=== PATIENT | male | born 1965 | race Caucasian/White ===

== ENCOUNTER 2018-02-18 18:17 | Inpatient (IN) | payer BC, OTHER ==
[~2018-02-18] VITALS: Ht 170.2 cm; Wt 73.8 kg
[2018-02-18] MEDS ORDERED: SODIUM CHLORIDE 0.9% 1000ML 1,000 ML IV STA (19:19)
--- NOTE | 2018-02-18 19:23 | EMERGENCY ROOM VISIT NOTE ---
History Report prepared by Kimo: Chiquita Holcomb Under the Supervision of: Dr. Vikki Franco D.O. 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 He states he took Tylenol which helped for about 3-4 hours but then his fever came back and he began having chills. The patient notes he woke up vomiting last night and has had a headache and neck pain since and standing up worsens his abdominal pain. 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 He states he has been staying hydrated by drinking Pedialyte, Gatorade, and water. 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 Negative leg swelling or dizziness Review of Systems See HPI for pertinent positives & negatives. A total of 10 systems reviewed and were otherwise negative. Past Medical & Surgical Medical Problems: (1) No significant past medical history (2) Upper abdominal pain Family History No pertinent family history Social History Smoking Status: Never Smoker Smokeless Tobacco Use: Unknown Marital Status: Housing Status: lives with significant other Occupation Status: employed Current/Historical Medications Scheduled Doxycycline Monohydrate (Monodox), 100 MG PO BID Fluoxetine Hcl (Prozac), 40 MG PO DAILY Allergies Coded Allergies: Erythromycin (Unverified Allergy, Unknown, HIVES, 02/18/18) Physical Exam Vital Signs Date Time Temp Pulse Resp B/P (MAP) Pulse Ox O2 Delivery O2 Flow Rate FiO2 02/19/18 01:07 38.6 80 18 133/75 99 Room Air 02/18/18 23:41 37.8 70 18 132/76 97 Room Air 02/18/18 21:51 73 18 128/69 98 Room Air 02/18/18 21:35 37.5 02/18/18 18:41 38.1 81 18 123/73 96 Room Air Physical Exam GENERAL: alert, well appearing, well nourished, no distress, non-toxic EYE EXAM: normal conjunctiva, PERRL and EOM's grossly intact OROPHARYNX: no exudate, no erythema, lips, buccal mucosa, and tongue normal and mucous membranes are moist NECK: supple, no nuchal rigidity, no adenopathy, non-tender LUNGS: Clear to auscultation. Normal chest wall mechanics HEART: no murmurs, S1 normal and S2 normal ABDOMEN: abdomen soft, non-tender, normo-active bowel sounds, no masses, no rebound or guarding. BACK: Back is symmetrical on inspection and there is no deformity, no midline tenderness, no CVA tenderness. SKIN: no rashes and no bruising. No obvious rash. No erythema migrans. UPPER EXTREMITIES: upper extremities are grossly normal. LOWER EXTREMITIES: No pitting edema. NEURO EXAM: Normal sensorium, cranial nerves II-XII grossly intact, normal speech, no gross weakness of arms, no gross weakness of legs. Medical Decision & Procedures ER Provider Diagnostic Interpretation: Radiology results have been interpreted by the radiologist and reviewed by me. ABDOMEN 2VIEW W/PA CHEST RTN CLINICAL HISTORY: fever, upper abd pain COMPARISON STUDY: No previous studies for comparison. FINDINGS: The erect chest reveals no free intraperitoneal air. There is no focal pulmonary consolidation. Erect and supine views the abdomen reveal no abnormally dilated loops of large or small bowel. There are no transition zones to indicate bowel obstruction. There is a nonspecific 7 mm left upper quadrant calcification. IMPRESSION: No evidence of bowel obstruction. No evidence of free air. Electronically signed by: Edwardo Powell M.D. 02/18/2018 8:[address] ABD/PELVIS IV CONTRAST ONLY CLINICAL HISTORY: Upper abdominal pain and fever COMPARISON STUDY: Conventional radiographic study dated 02/18/2018 TECHNIQUE: Following the IV administration of 115 mL of Optiray-320, CT scan of the abdomen and pelvis was performed from the lung bases to the proximal femurs. Images are reviewed in the axial, sagittal, and coronal planes. IV contrast was administered without complication. A dose lowering technique was utilized adhering to the principles of ALARA. CT DOSE: 301.32 mGy.cm FINDINGS: Lower chest: There are mild dependent atelectatic changes. Liver: The contrast-enhanced liver is normal in size, contour, and attenuation. There is no intrahepatic biliary ductal dilatation. The hepatic veins and portal veins are patent. Gallbladder: No calculi are visualized. There is moderate gallbladder wall thickening. Spleen: Upper limits of normal in size measuring 12.2 cm. There is a splenic artery calcification which explains the calcific density described on the recent abdominal series. Pancreas: Unremarkable. Adrenal glands: Unremarkable. Kidneys: There is an indeterminate 17 mm right renal mass. A dedicated renal CT scan or MRI is recommended in follow-up to differentiate a hyperdense cyst from solid renal neoplasm Bowel: There are no transition zones indicate bowel obstruction. There is no acute diverticulitis. There are no findings to indicate acute appendicitis. Peritoneum: There is no intraperitoneal free air or abdominal ascites. Vasculature: The abdominal aorta is normal in course and caliber. Adenopathy: None. Pelvic viscera: There is mild prostamegaly Skeletal structures: There are scattered sclerotic densities, statistically representing bone islands. Degenerative changes are present within the lower lumbar spine IMPRESSION: 1. No evidence of bowel obstruction. No evidence of free air 2. No evidence of acute appendicitis. No evidence of acute diverticulitis 3. Unexplained gallbladder wall thickening. Correlation with liver function tests is recommended as this finding can be seen in hepatocellular disease. 4. Indeterminate 17 mm right renal mass. A dedicated renal CT scan or MRI is recommended in follow-up to differentiate a hyperdense cyst from solid renal neoplasm Electronically signed by: Edwardo Powell M.D. 02/18/2018 10:34 PM Dictated Date/Time: 02/18/2018 10:28 PM Laboratory Results 02/18/18 19:48 Red Blood Count 4.44, Mean Corpuscular Volume 88.7, Mean Corpuscular Hemoglobin 30.6, Mean Corpuscular Hemoglobin Concent 34.5, Mean Platelet Volume 8.9, Neutrophils (%) (Auto) 75.6, Lymphocytes (%) (Auto) 12.6, Monocytes (%) (Auto) 11.1, Eosinophils (%) (Auto) 0.2, Basophils (%) (Auto) 0.5, Neutrophils # (Auto ) 3.12, Lymphocytes # (Auto) 0.52, Monocytes # (Auto) 0.46, Eosinophils # (Auto ) 0.01, Basophils # (Auto) 0.02 02/18/18 19:48 Test 02/18/18 19:41 02/18/18 19:48 02/18/18 20:04 Urine Color YELLOW Urine Appearance CLEAR (CLEAR) Urine pH 6.0 (4.5-7.5) Urine Specific [place] 1.014 (1.000-1.030) Urine Protein TRACE (NEG) Urine Glucose (UA) 1+ (NEG) Urine Ketones NEG (NEG) Urine Occult Blood NEG (NEG) Urine Nitrite NEG (NEG) Urine Bilirubin NEG (NEG) Urine Urobilinogen NEG (NEG) Urine Leukocyte Esterase NEG (NEG) Urine WBC (Auto) 1-5 /hpf (0-5) Urine RBC (Auto) 0-4 /hpf (0-4) Urine Hyaline Casts (Auto) 0 /lpf (0-5) Urine Epithelial Cells (Auto) 0-5 /lpf (0-5) Urine Bacteria (Auto) NEG (NEG) White Blood Count 4.13 K/uL (4.8-10.8) Red Blood Count 4.44 M/uL (4.7-6.1) Hemoglobin 13.6 g/dL (14.0-18.0) Hematocrit 39.4 % (42-52) Mean Corpuscular Volume 88.7 fL (80-100) Mean Corpuscular Hemoglobin 30.6 pg (25-34) Mean Corpuscular Hemoglobin Concent 34.5 g/dl (32-36) Platelet Count 130 K/uL (130-400) Mean Platelet Volume 8.9 fL (7.4-10.4) Neutrophils (%) (Auto) 75.6 % Lymphocytes (%) (Auto) 12.6 % Monocytes (%) (Auto) 11.1 % Eosinophils (%) (Auto) 0.2 % Basophils (%) (Auto) 0.5 % Neutrophils # (Auto) 3.12 K/uL (1.4-6.5) Lymphocytes # (Auto) 0.52 K/uL (1.2-3.4) Monocytes # (Auto) 0.46 K/uL (0.11-0.59) Eosinophils # (Auto) 0.01 K/uL (0-0.5) Basophils # (Auto) 0.02 K/uL (0-0.2) RDW Standard Deviation 41.7 fL (36.4-46.3) RDW Coefficient of Variation 12.9 % (11.5-14.5) Immature Granulocyte % (Auto) 0.0 % Immature Granulocyte # (Auto) 0.00 K/uL (0.00-0.02) Anion Gap 7.0 mmol/L (3-11) Est Creatinine Clear Calc Drug Dose 90.8 ml/min Estimated GFR () 114.2 Estimated GFR (Non- 98.5 BUN/Creatinine Ratio 14.1 (10-20) Calcium Level 8.5 mg/dl (8.5-10.1) Magnesium Level 2.2 mg/dl (1.8-2.4) Total Bilirubin 0.8 mg/dl (0.2-1) Aspartate Amino Transf (AST/SGOT) 45 U/L (15-37) Alanine Aminotransferase (ALT/SGPT) 58 U/L (12-78) Alkaline Phosphatase 78 U/L (45-117) Total Creatine Kinase 94 U/L (39-308) Troponin I < 0.015 ng/ml (0-0.045) Total Protein 7.2 gm/dl (6.4-8.2) Albumin 3.7 gm/dl (3.4-5.0) Globulin 3.5 gm/dl (2.5-4.0) Albumin/Globulin Ratio 1.1 (0.9-2) Lipase 155 U/L (73-393) Thyroid Stimulating Hormone (TSH) 1.570 uIu/ml (0.300-4.500) Lyme Disease IgG Antibody NEG (NEG) Lyme Disease IgM Antibody NEG (NEG) Monoscreen NEG (NEG) Bedside Lactic Acid Venous 0.92 mmol/L (0.90-1.70) Laboratory results per my review. Medications Administered Medications (Trade) Dose Ordered Sig/Kajal Route Start Time Stop Time Status Last Admin Dose Admin Sodium Chloride 1,000 ml @ 999 mls/hr Q1H1M STAT IV 02/18/18 19:19 02/18/18 20:19 DC 02/18/18 20:09 999 MLS/HR Acetaminophen (Tylenol Tab) 1,000 mg NOW STAT PO 02/18/18 21:07 02/18/18 21:08 DC 02/18/18 21:32 1,000 MG Famotidine (Pepcid 20mg Iv Push) 20 mg ONE STAT IV 02/18/18 21:40 02/18/18 21:41 DC 02/18/18 21:49 20 MG Doxycycline Hyclate (Vibramycin Cap) 100 mg ONE ONCE PO 02/18/18 22:15 02/18/18 22:16 DC 02/18/18 22:57 100 MG Acetaminophen 650 mg/Empty Bag 65 ml @ 260 mls/hr Q4 PRN IV 02/19/18 01:30 03/21/18 01:29 02/19/18 05:56 260 MLS/HR Ondansetron HCl (Zofran Inj) 4 mg Q6H PRN IV 02/19/18 02:00 03/21/18 01:59 02/19/18 05:45 4 MG Sodium Chloride 1,000 ml @ 100 mls/hr Q10H IV 02/19/18 02:00 03/21/18 01:59 02/19/18 03:46 100 MLS/HR ECG Per My Interpretation Indication: other (fever) Rate (beats per minute): 71 Rhythm: sinus rhythm Findings: no acute ischemic change, no ectopy, other (normal axis, normal intervals) ED Course 1911: The patient was evaluated in room C9. A complete history and physical exam was performed. 1918: Ordered Sodium Chloride 1000 ml @ 999 mls/hr IV 2134: Patient updated here. States still having upper abdominal pain, no nausea vomiting, body aches are slightly improved. Updated on all results so far. Discussed with patient headache in the setting of fever also. Discuss differential diagnosis including meningitis/encephalitis. Using shared medical decision making we did discuss lumbar puncture to rule out meningitis. Discussed the risks and benefits and the patient declined. 2229: Discussed with pt findings on CT. Will add US. Discussed need for outpt f/u regarding the renal mass noted on CT. Will sign on ultrasound to Dr. Kulkarni for follow-up. Medical Decision Differential diagnosis: Etiologies such as viral syndrome, otitis, pharyngitis, pneumonia, influenza, meningitis, urinary tract infection, sepsis, bacteremia, as well as others were entertained. Discussed all results with patient at bedside including need for outpatient follow-up regarding the renal mass noted on CT. Patient initial presentation more consistent with viral illness possible tickborne illness especially in light of recent tick bite. Patient's labs reassuring, no definitive lab abnormalities to suggest anaplasmosis. Lyme and mono testing initially negative. Patient with mild leukopenia noted, however no other significant abnormalities. CT showed some gallbladder wall thickening but without stones or sludge. This was discussed with patient and ultrasound was ordered. Patient 's exam not impressive for abdominal tenderness or cholecystitis. Patient had some mild nausea but no vomiting. Did discuss possible LP with patient in light of mention of headache, he declined LP and is aware of risks versus benefits. If ultrasound negative plan was for patient to go home on doxycycline until tickborne labs are resulted and to follow-up closely with family doctor regarding his current condition and arrange follow-up regarding the renal mass. I do not suspect bacteremia/sepsis, perforation, mesenteric ischemia, do not suspect pulmonary pathology, have low suspicion for meningitis/ encephalitis, I do not suspect other deep space infection or pharyngitis. No symptoms to suggest infection. Patient signed out to Dr. Kulkarni in stable condition. Patient was hemodynamically stable throughout. Medication Reconcilliation Current Medication List: was personally reviewed by me Blood Pressure Screening Patient's blood pressure: Normal blood pressure Blood pressure disposition: Did not require urgent referral Impression Primary Impression: Fever Additional Impression: Abdominal pain Scribe Attestation The scribe's documentation has been prepared under my direction and personally reviewed by me in its entirety. I confirm that the note above accurately reflects all work, treatment, procedures, and medical decision making performed by me. Departure Information Prescriptions Doxycycline Monohydrate (Monodox) 100 Mg Cap 100 MG PO BID for 21 Days, #42 CAP Prov: Vikki Franco, 02/18/18 Patient Instructions My [facility] Problem Qualifiers Primary Impression: Fever Fever type: unspecified Qualified Codes: R50.9 - Fever, unspecified Additional Impression: Abdominal pain Abdominal location: upper abdomen, unspecified Qualified Codes: R10.10 - Upper abdominal pain, unspecified
[2018-02-18] MEDS ORDERED: FLUO40CA8 PO (20:04)
[2018-02-18 20:14] LABS: BASO % 0.5 %; BASO ABS # 0.02 K/uL (0-0.2); EOS % 0.2 %; EOS ABS # 0.01 K/uL (0-0.5); HEMATOCRIT 39.4 % (42-52); HEMOGLOBIN 13.6 g/dL (14.0-18.0); LYMPH % 12.6 %; LYMPH ABS # 0.52 K/uL (1.2-3.4); MEAN CELL VOLUME 88.7 fL (80-100); MEAN CORPUSCULAR HEMOGLOBIN 30.6 pg (25-34); MEAN CORPUSCULAR HGB CONC 34.5 g/dl (32-36); MEAN PLATELET VOLUME 8.9 fL (7.4-10.4); MONO % 11.1 %; MONO ABS # 0.46 K/uL (0.11-0.59); NEUT % 75.6 %; NEUT ABS # 3.12 K/uL (1.4-6.5); PLATELET COUNT 130 K/uL (130-400); RED CELL DISTRIBUTION WIDTH CV 12.9 % (11.5-14.5); RED CELL DISTRIBUTION WIDTH SD 41.7 fL (36.4-46.3); WHITE BLOOD COUNT 4.13 K/uL (4.8-10.8)
--- NOTE | 2018-02-18 20:28 | DIAGNOSTIC IMAGING REPORT ---
ABDOMEN 2VIEW W/PA CHEST RTN CLINICAL HISTORY: fever, upper abd pain COMPARISON STUDY: No previous studies for comparison. FINDINGS: The erect chest reveals no free intraperitoneal air. There is no focal pulmonary consolidation. Erect and supine views the abdomen reveal no abnormally dilated loops of large or small bowel. There are no transition zones to indicate bowel obstruction. There is a nonspecific 7 mm left upper quadrant calcification. IMPRESSION: No evidence of bowel obstruction. No evidence of free air. Electronically signed by: Edwardo Powell M.D. 02/18/2018 8:26 PM Dictated Date/Time: 02/18/2018 8:25 PM
[2018-02-18 20:34] LABS: MONOSPOT NEG (NEG)
[2018-02-18 20:42] LABS: ALBUMIN 3.7 gm/dl (3.4-5.0); ALKALINE PHOSPHATASE 78 U/L (45-117); ALT/SGPT 58 U/L (12-78); AST/SGOT 45 U/L (15-37); BLOOD UREA NITROGEN 13 mg/dl (7-18); CALCIUM 8.5 mg/dl (8.5-10.1); CARBON DIOXIDE 27 mmol/L (21-32); GLUCOSE 114 mg/dl (70-99); POTASSIUM 3.8 mmol/L (3.5-5.1); SODIUM 135 mmol/L (136-145); TOTAL PROTEIN 7.2 gm/dl (6.4-8.2)
[2018-02-18] MEDS ORDERED: ACETAMINOPHEN 500 MG TAB PO STA (21:07)
[2018-02-18] MEDS ORDERED: FAMOTIDINE 20MG/5ML IV PUSH IV STA (21:40)
[2018-02-18] MEDS ORDERED: OPTIRAY 320 IV PRN (22:00)
[2018-02-18] MEDS ORDERED: DOXYCYCLINE HYCLATE 100 MG CAP PO ONE (22:15)
[2018-02-18] MEDS ORDERED: DOXY100C76 PO (22:18)
--- NOTE | 2018-02-18 22:36 | DIAGNOSTIC IMAGING REPORT ---
CT ABD/PELVIS IV CONTRAST ONLY CLINICAL HISTORY: Upper abdominal pain and fever COMPARISON STUDY: Conventional radiographic study dated 02/18/2018 TECHNIQUE: Following the IV administration of 115 mL of Optiray-320, CT scan of the abdomen and pelvis was performed from the lung bases to the proximal femurs. Images are reviewed in the axial, sagittal, and coronal planes. IV contrast was administered without complication. A dose lowering technique was utilized adhering to the principles of ALARA. CT DOSE: 301.32 mGy.cm FINDINGS: Lower chest: There are mild dependent atelectatic changes. Liver: The contrast-enhanced liver is normal in size, contour, and attenuation. There is no intrahepatic biliary ductal dilatation. The hepatic veins and portal veins are patent. Gallbladder: No calculi are visualized. There is moderate gallbladder wall thickening. Spleen: Upper limits of normal in size measuring 12.2 cm. There is a splenic artery calcification which explains the calcific density described on the recent abdominal series. Pancreas: Unremarkable. Adrenal glands: Unremarkable. Kidneys: There is an indeterminate 17 mm right renal mass. A dedicated renal CT scan or MRI is recommended in follow-up to differentiate a hyperdense cyst from solid renal neoplasm Bowel: There are no transition zones indicate bowel obstruction. There is no acute diverticulitis. There are no findings to indicate acute appendicitis. Peritoneum: There is no intraperitoneal free air or abdominal ascites. Vasculature: The abdominal aorta is normal in course and caliber. Adenopathy: None. Pelvic viscera: There is mild prostamegaly Skeletal structures: There are scattered sclerotic densities, statistically representing bone islands. Degenerative changes are present within the lower lumbar spine IMPRESSION: 1. No evidence of bowel obstruction. No evidence of free air 2. No evidence of acute appendicitis. No evidence of acute diverticulitis 3. Unexplained gallbladder wall thickening. Correlation with liver function tests is recommended as this finding can be seen in hepatocellular disease. 4. Indeterminate 17 mm right renal mass. A dedicated renal CT scan or MRI is recommended in follow-up to differentiate a hyperdense cyst from solid renal neoplasm Electronically signed by: Edwardo Powell M.D. 02/18/2018 10:34 PM Dictated Date/Time: 02/18/2018 10:28 PM
[2018-02-19] VITALS (11 sets, daily range): BP systolic 104–123; BP diastolic 63–80; PULSE 78–96; TEMP 36.3–39.1; O2SAT 91–99; Ht 170.2 cm; Wt 73.8 kg
--- NOTE | 2018-02-19 01:13 | EMERGENCY ROOM VISIT NOTE ---
ED Visit Note First contact with patient: 23:05 Patient is a 52-year-old male that signed out to me awaiting ultrasound the right upper quadrant. Right upper quadrant shows a thickened gallbladder wall with sludge and a CBD slightly dilated. Patient has been having fevers in the ER. The abdominal exam was pretty benign on my evaluation. Discussed with general surgery who evaluated him at bedside. They recommended a HIDA scan. With the fevers and the gallbladder wall distention discussed with internal medicine per general surgeries request. Internal medicine was agreeable to evaluating the patient for observation and further workup with fevers and right upper quadrant gallbladder wall thickening.
--- NOTE | 2018-02-19 01:39 | Surgery Consultation ---
Consultation Date of Consultation: Feb 19, 2018. Attending Physician: Reason for Consultation: Patient is a 52M who presented to the ED this past evening due to intermittent abdominal pain starting on Thursday. Reports his pain is in his upper abdomen and wraps across from the right to left. He has also had a persistent fever since Thursday. Reports he has been taking tylenol every 5 hours since which has helped but his fever keeps returning. Reports 1 episode of nausea/vomiting on Thursday. Denies hematemesis. He also reports chills and body aches. Moving his bowels and urinating without issue. Last BM yesterday morning. He last ate yesterday morning as well. Denies history of previous abdominal surgeries. Denies use of blood thinning or anticoagulant medications. Denies any symptoms like this in the past. Of note, he reports he had a tick in him approximately 3 weeks ago. Lyme Neg. Anaplasma phagoctyophilum AB, DNA pending. EBV AG, AB and panel pending. Patient did receive 100mg Doxycycline in the ED. Denies any other significant PMH. WBC 4.13. AST 45, remaining LFT WNL. CT shows non- specific gallbladder wall thickening. RUQ U/S shows Gallbladder wall at 6mm, sludge, CBD borderline at 7mm, no cholelithiasis present. Acute cholecystitis not excluded. Past Medical/Surgical History Medical Problems: (1) Abdominal pain Status: Acute (2) Fever Status: Acute Family History No pertinent family history Social History Smoking Status: Never Smoker Smokeless Tobacco Use: Unknown Marital Status: Housing Status: lives with significant other Occupation Status: employed Allergies Coded Allergies: Erythromycin (Unverified Allergy, Unknown, HIVES, 02/18/18) Home Medications Scheduled Doxycycline Monohydrate (Monodox), 100 MG PO BID Fluoxetine Hcl (Prozac), 40 MG PO DAILY Current Inpatient Medications Current Inpatient Medications Medications (Trade) Dose Ordered Sig/Kajal Route Start Time Stop Time Status Last Admin Dose Admin Ioversol (Optiray 320) 111 ml UD PRN IV 02/18/18 22:00 02/22/18 21:59 Review of Systems Constitutional: + fever, + chills, + weakness, + problem reported (body aches) Respiratory: No shortness of breath Cardiovascular: No chest pain Abdomen: + pain (RUQ, Epigastric), + nausea (Thursday), + vomiting (Thursday) , No diarrhea, No constipation Genitourinary - Male: No hematuria, No dysuria Integumentary: No new/changing skin lesions, No color change Physical Exam Date Time Temp Pulse Resp B/P (MAP) Pulse Ox O2 Delivery O2 Flow Rate FiO2 02/19/18 01:07 38.6 80 18 133/75 99 Room Air 02/18/18 23:41 37.8 70 18 132/76 97 Room Air 02/18/18 21:51 73 18 128/69 98 Room Air 02/18/18 21:35 37.5 02/18/18 18:41 38.1 81 18 123/73 96 Room Air General Appearance: WD/WN, + pertinent finding (ill appearing, huddled under blankets feeling cold due to fever.) Head: normocephalic, atraumatic ENT: hearing grossly normal Respiratory/Chest: no respiratory distress Abdomen/GI: soft, no organomegaly, no pulsatile mass, + tenderness (pressure in RUQ and epigastric regions with palpation, patient denies any tenderness with palpation) Neurologic/Psych: alert, normal mood/affect, oriented x 3 Skin: normal color, warm/dry Laboratory Results Last 24 Hours Test 02/18/18 19:41 02/18/18 19:48 02/18/18 20:04 Urine Color YELLOW Urine Appearance CLEAR Urine pH 6.0 Urine Specific [place] 1.014 Urine Protein TRACE Urine Glucose (UA) 1+ Urine Ketones NEG Urine Occult Blood NEG Urine Nitrite NEG Urine Bilirubin NEG Urine Urobilinogen NEG Urine Leukocyte Esterase NEG Urine WBC (Auto) 1-5 /hpf Urine RBC (Auto) 0-4 /hpf Urine Hyaline Casts (Auto) 0 /lpf Urine Epithelial Cells (Auto) 0-5 /lpf Urine Bacteria (Auto) NEG White Blood Count 4.13 K/uL Red Blood Count 4.44 M/uL Hemoglobin 13.6 g/dL Hematocrit 39.4 % Mean Corpuscular Volume 88.7 fL Mean Corpuscular Hemoglobin 30.6 pg Mean Corpuscular Hemoglobin Concent 34.5 g/dl Platelet Count 130 K/uL Mean Platelet Volume 8.9 fL Neutrophils (%) (Auto) 75.6 % Lymphocytes (%) (Auto) 12.6 % Monocytes (%) (Auto) 11.1 % Eosinophils (%) (Auto) 0.2 % Basophils (%) (Auto) 0.5 % Neutrophils # (Auto) 3.12 K/uL Lymphocytes # (Auto) 0.52 K/uL Monocytes # (Auto) 0.46 K/uL Eosinophils # (Auto) 0.01 K/uL Basophils # (Auto) 0.02 K/uL RDW Standard Deviation 41.7 fL RDW Coefficient of Variation 12.9 % Immature Granulocyte % (Auto) 0.0 % Immature Granulocyte # (Auto) 0.00 K/uL Sodium Level 135 mmol/L Potassium Level 3.8 mmol/L Chloride Level 101 mmol/L Carbon Dioxide Level 27 mmol/L Anion Gap 7.0 mmol/L Blood Urea Nitrogen 13 mg/dl Creatinine 0.90 mg/dl Est Creatinine Clear Calc Drug Dose 90.8 ml/min Estimated GFR () 114.2 Estimated GFR (Non- 98.5 BUN/Creatinine Ratio 14.1 Random Glucose 114 mg/dl Calcium Level 8.5 mg/dl Magnesium Level 2.2 mg/dl Total Bilirubin 0.8 mg/dl Aspartate Amino Transf (AST/SGOT) 45 U/L Alanine Aminotransferase (ALT/SGPT) 58 U/L Alkaline Phosphatase 78 U/L Total Creatine Kinase 94 U/L Troponin I < 0.015 ng/ml Total Protein 7.2 gm/dl Albumin 3.7 gm/dl Globulin 3.5 gm/dl Albumin/Globulin Ratio 1.1 Thyroid Stimulating Hormone (TSH) 1.570 uIu/ml Lyme Disease IgG Antibody NEG Lyme Disease IgM Antibody NEG Monoscreen NEG Bedside Lactic Acid Venous 0.92 mmol/L Assessment & Plan Abdominal pain, fever, non-specific gallbladder wall thickening. acute cholecystitis?, tick borne illness? Findings discussed with Dr. Barajas and Dr. Kulkarni. Abdomen soft, non-distended, fainted pressure with palpation in RUQ and epigastic areas. febrile, no N/V at this time. Other vitals stable. gallbladder findings non-specific however cannot rule out at this time. other tick borne causes still on the table as well. Will await pending serology and plan for HIDA scan in AM to further assess for cholecystitis. Admit for observation per medicine. NPO, IVF, IV Tylenol 650mg q4h prn for fever, 2g IV Mefoxin, pain medication prn, anti-emetics prn, SCDs. Will plan for laparoscopic cholecystectomy, possible open later today if HIDA findings significant for acute cholecystitis. Will follow closely, please contact with questions or concerns.
[2018-02-19] MEDS ORDERED: CEFOXITIN IV 2,000 MG in DEXTROSE 5% 50ML 50 ML IV SCH (01:45)
[2018-02-19] MEDS ORDERED: MAGNESIUM HYDROXIDE SUSP 30 ML UDC PO PRN (02:00)
[2018-02-19] MEDS ORDERED: POLYETHYLENE (MIRALAX) 17 GM PACK PO PRN (02:00)
[2018-02-19] MEDS ORDERED: ALUMINUM/MAGNESIUM/SIMETH (MAALOX MAX) 30 ML UDC PO PRN (02:00)
[2018-02-19] MEDS: ACETAMINOPHEN IV 650 MG in EMPTY BAG 0 ML IV PRN ×4 (02:14→22:20)
--- NOTE | 2018-02-19 02:39 | History and Physical ---
History & Physical Date & Time of Service: Feb 19, 2018 at 02:39 Chief Complaint: Fever,Headaches,Chills Primary Care Physician: Steven Hernandez M.D. History of Present Illness Source: patient, hospital records 52 yo M presenting with Abdominal pain x 5 days . Abdominal Pain is located across the upper abdomen and is intermittent. He denies meal association. NO aggravating factors. He has tried ibuprofen, Tylenol, TUMS without relief. Patient also reports chills, fevers up to 103 2 days later. ( February 16) He also reports nausea, with one episode of vomiting 2 days ago. He denies change in stool. He also reports generalized bodyache. No other sick contacts. No recent travel. He does report tick bite a few weeks ago without a rash. In the ED, patient arrived febrile in 38.1-38.6, otherwise VSS. He had no Leukocytosis, UA was negative. Lyme EBV serology pending. CT Abdomen showing gallbladder wall thickening and 17 mm renal mass incidentally. Abdominal u/s showed gall bladder thickening with possible intraluminal sludge CBD borderline dilated at 7 mm, exophytic right renal cyst, hepatic steatosis ( Per Stat Rad). PCP is Dave Hernandez MD Past Medical/Surgical History Past Medical History Depression/Anxiety Medical Problems: (1) No significant past medical history (2) Upper abdominal pain Family History FH: cancer No pertinent family history Social History Smoking Status: Never Smoker Smokeless Tobacco Use: No Alcohol Use: none Drug Use: none Marital Status: Housing status: lives with family Occupational Status: employed Immunizations History of Influenza Vaccine: Unknown History of Tetanus Vaccine?: Unknown History of Pneumococcal: Unknown History of Hepatitis B Vaccine: Unknown Allergies Coded Allergies: Erythromycin (Unverified Allergy, Unknown, HIVES, 02/18/18) Home Medications Scheduled Doxycycline Monohydrate (Monodox), 100 MG PO BID Fluoxetine Hcl (Prozac), 40 MG PO DAILY Scheduled PRN Oxycodone/Acetaminophen 5MG/325MG (Percocet 5MG/325MG), 1-2 TABLETS PO Q4H PRN for Pain Review of Systems Constitutional: + fever, No chills, No weakness Respiratory: No cough, No sputum, No shortness of breath Cardiovascular: No chest pain, No edema, No palpitations Abdomen: + pain, + nausea, + vomiting, No diarrhea, No constipation, No GI bleeding Musculoskeletal: No swelling, No calf pain Genitourinary - Male: No hematuria, No dysuria, No urinary frequency, No urinary urgency Neurologic: No weakness, No numbness/tingling Integumentary: No rash, No itch Physical Exam Vital Signs Date Time Temp Pulse Resp B/P (MAP) Pulse Ox O2 Delivery O2 Flow Rate FiO2 02/19/18 01:07 38.6 80 18 133/75 99 Room Air 02/18/18 23:41 37.8 70 18 132/76 97 Room Air 02/18/18 21:51 73 18 128/69 98 Room Air 02/18/18 21:35 37.5 02/18/18 18:41 38.1 81 18 123/73 96 Room Air GENERAL: alert, moderate distress EYE EXAM: normal conjunctiva, PERRL and EOM's grossly intact OROPHARYNX: no exudate, no erythema, lips, buccal mucosa, and tongue normal and mucous membranes are moist NECK: supple, no nuchal rigidity, no adenopathy, non-tender LUNGS: Clear to auscultation. Normal chest wall mechanics HEART: no murmurs, S1 normal and S2 normal ABDOMEN: abdomen soft, Epigastric, RUQ tenderness to palpation normo-active bowel sounds, no masses, no rebound or guarding. BACK: Back is symmetrical on inspection and there is no deformity, no midline tenderness, no CVA tenderness. SKIN: no rashes and no bruising UPPER EXTREMITIES: upper extremities are grossly normal. LOWER EXTREMITIES: No pitting edema. NEURO EXAM: Normal sensorium, cranial nerves II-XII grossly intact, normal speech, no gross weakness of arms, no gross weakness of legs. Diagnostics Laboratory Results Results Past 24 Hours Test 02/18/18 19:41 02/18/18 19:48 02/18/18 20:04 Range/Units Urine Color YELLOW Urine Appearance CLEAR CLEAR Urine pH 6.0 4.5-7.5 Urine Specific [place] 1.014 1.000-1.030 Urine Protein TRACE NEG Urine Glucose (UA) 1+ NEG Urine Ketones NEG NEG Urine Occult Blood NEG NEG Urine Nitrite NEG NEG Urine Bilirubin NEG NEG Urine Urobilinogen NEG NEG Urine Leukocyte Esterase NEG NEG Urine WBC (Auto) 1-5 0-5 /hpf Urine RBC (Auto) 0-4 0-4 /hpf Urine Hyaline Casts (Auto) 0 0-5 /lpf Urine Epithelial Cells (Auto) 0-5 0-5 /lpf Urine Bacteria (Auto) NEG NEG White Blood Count 4.13 4.8-10.8 K/uL Red Blood Count 4.44 4.7-6.1 M/uL Hemoglobin 13.6 14.0-18.0 g/dL Hematocrit 39.4 42-52 % Mean Corpuscular Volume 88.7 80-100 fL Mean Corpuscular Hemoglobin 30.6 25-34 pg Mean Corpuscular Hemoglobin Concent 34.5 32-36 g/dl Platelet Count 130 130-400 K/uL Mean Platelet Volume 8.9 7.4-10.4 fL Neutrophils (%) (Auto) 75.6 % Lymphocytes (%) (Auto) 12.6 % Monocytes (%) (Auto) 11.1 % Eosinophils (%) (Auto) 0.2 % Basophils (%) (Auto) 0.5 % Neutrophils # (Auto) 3.12 1.4-6.5 K/uL Lymphocytes # (Auto) 0.52 1.2-3.4 K/uL Monocytes # (Auto) 0.46 0.11-0.59 K/uL Eosinophils # (Auto) 0.01 0-0.5 K/uL Basophils # (Auto) 0.02 0-0.2 K/uL RDW Standard Deviation 41.7 36.4-46.3 fL RDW Coefficient of Variation 12.9 11.5-14.5 % Immature Granulocyte % (Auto) 0.0 % Immature Granulocyte # (Auto) 0.00 0.00-0.02 K/uL Sodium Level 135 136-145 mmol/L Potassium Level 3.8 3.5-5.1 mmol/L Chloride Level 101 98-107 mmol/L Carbon Dioxide Level 27 21-32 mmol/L Anion Gap 7.0 3-11 mmol/L Blood Urea Nitrogen 13 7-18 mg/dl Creatinine 0.90 0.60-1.40 mg/dl Est Creatinine Clear Calc Drug Dose 90.8 ml/min Estimated GFR () 114.2 Estimated GFR (Non- 98.5 BUN/Creatinine Ratio 14.1 10-20 Random Glucose 114 70-99 mg/dl Calcium Level 8.5 8.5-10.1 mg/dl Magnesium Level 2.2 1.8-2.4 mg/dl Total Bilirubin 0.8 0.2-1 mg/dl Aspartate Amino Transf (AST/SGOT) 45 15-37 U/L Alanine Aminotransferase (ALT/SGPT) 58 12-78 U/L Alkaline Phosphatase 78 45-117 U/L Total Creatine Kinase 94 39-308 U/L Troponin I < 0.015 0-0.045 ng/ml Total Protein 7.2 6.4-8.2 gm/dl Albumin 3.7 3.4-5.0 gm/dl Globulin 3.5 2.5-4.0 gm/dl Albumin/Globulin Ratio 1.1 0.9-2 Thyroid Stimulating Hormone (TSH) 1.570 0.300-4.500 uIu/ml Lyme Disease IgG Antibody NEG NEG Lyme Disease IgM Antibody NEG NEG Monoscreen NEG NEG Bedside Lactic Acid Venous 0.92 0.90-1.70 mmol/L Diagnostic Radiology ABDOMEN 2VIEW W/PA CHEST RTN CLINICAL HISTORY: fever, upper abd pain COMPARISON STUDY: No previous studies for comparison. FINDINGS: The erect chest reveals no free intraperitoneal air. There is no focal pulmonary consolidation. Erect and supine views the abdomen reveal no abnormally dilated loops of large or small bowel. There are no transition zones to indicate bowel obstruction. There is a nonspecific 7 mm left upper quadrant calcification. IMPRESSION: No evidence of bowel obstruction. No evidence of free air. Electronically signed by: Edwardo Powell M.D. 02/18/2018 8:26 PM Dictated Date/Time: 02/18/2018 8:[address] ABD/PELVIS IV CONTRAST ONLY CLINICAL HISTORY: Upper abdominal pain and fever COMPARISON STUDY: Conventional radiographic study dated 02/18/2018 TECHNIQUE: Following the IV administration of 115 mL of Optiray-320, CT scan of the abdomen and pelvis was performed from the lung bases to the proximal femurs. Images are reviewed in the axial, sagittal, and coronal planes. IV contrast was administered without complication. A dose lowering technique was utilized adhering to the principles of ALARA. CT DOSE: 301.32 mGy.cm FINDINGS: Lower chest: There are mild dependent atelectatic changes. Liver: The contrast-enhanced liver is normal in size, contour, and attenuation. There is no intrahepatic biliary ductal dilatation. The hepatic veins and portal veins are patent. Gallbladder: No calculi are visualized. There is moderate gallbladder wall thickening. Spleen: Upper limits of normal in size measuring 12.2 cm. There is a splenic artery calcification which explains the calcific density described on the recent abdominal series. Pancreas: Unremarkable. Adrenal glands: Unremarkable. Kidneys: There is an indeterminate 17 mm right renal mass. A dedicated renal CT scan or MRI is recommended in follow-up to differentiate a hyperdense cyst from solid renal neoplasm Bowel: There are no transition zones indicate bowel obstruction. There is no acute diverticulitis. There are no findings to indicate acute appendicitis. Peritoneum: There is no intraperitoneal free air or abdominal ascites. Vasculature: The abdominal aorta is normal in course and caliber. Adenopathy: None. Pelvic viscera: There is mild prostamegaly Skeletal structures: There are scattered sclerotic densities, statistically representing bone islands. Degenerative changes are present within the lower lumbar spine IMPRESSION: 1. No evidence of bowel obstruction. No evidence of free air 2. No evidence of acute appendicitis. No evidence of acute diverticulitis 3. Unexplained gallbladder wall thickening. Correlation with liver function tests is recommended as this finding can be seen in hepatocellular disease. 4. Indeterminate 17 mm right renal mass. A dedicated renal CT scan or MRI is recommended in follow-up to differentiate a hyperdense cyst from solid renal neoplasm Electronically signed by: Edwardo Powell M.D. 02/18/2018 10:34 PM Dictated Date/Time: 02/18/2018 10:28 PM Impression Assessment and Plan 52 yo previously healthy M presenting with Abdominal pain x 5 days , Nausea, febrile on arrival, found to have Gall bladder thinking of unclear etiology on CT and Abdominal u/s. In the ED, patient arrived febrile in 38.1-38.6, otherwise VSS. He had no Leukocytosis, UA was negative. Lyme EBV serology pending. CT Abdomen showing gallbladder wall thickening and 17 mm renal mass incidentally. Abdominal u/s showed gall bladder thickening with possible intraluminal sludge CBD borderline dilated at 7 mm, exophytic right renal cyst, hepatic steatosis ( Per Stat Rad). Given Cefoxitin . Abdominal pain, Fever -CBC, CMP , UA unremarkable. -CT Abdomen showing gallbladder wall thickening of unknown etiology and 17 mm renal mass incidentall -Abdominal u/s showed gall bladder thickening with possible intraluminal sludge CBD borderline dilated at 7 mm - NPO - IV Protonix, IV NS - Gastroenterology consult - Pain control - F/u Lyme, EBV Studies Exophytic Renal cyst - per STATRAD Abdominal u/s report -F/u inhouse report -may need Urology f/u outpatient Depression/Anxiety - restart Home Fluoxetine DVT PPX: SCD Code Status: Full Disp: Admit to Med/surg Attending addendum: I have physically seen this patient, have supervised the medical residents activities, and agree with the H&P unless as otherwise noted. Assessment and Plan: Abdominal pain with fever/gallbladder wall thickening/question intraluminal sludge/CBD dilation 7 mm-- N.p.o. IV fluids. Protonix IV. HIDA scan with gallbladder ejection fraction. GI consult. Large exophytic renal cyst-- Incidentally noted on CT. Should have repeat in 6 months follow-up urology. Remainder of notes and orders as noted above. Advanced Directives Existing Advance Directive: No Existing Living Will: No Existing Power of [employer] Social [employer] Teacher: No Resuscitation Status VTE Prophylaxis Will order VTE Prophylaxis: Yes Social Service Consult None Apply Note Total Time: Critical Care 30 - 74 minutes Resident Tracking Resident Involvement: Resident Care Provided Care Provided: Adult Hospital Medicine
[2018-02-19 03:36] LABS: LIPASE 155 U/L (73-393)
[2018-02-19] MEDS: SODIUM CHLORIDE 0.9% 1000ML 1,000 ML IV SCH ×2 (03:46→20:08)
[2018-02-19] MEDS: ONDANSETRON INJ 2 MG/ML 2 ML VIAL IV PRN ×2 (05:45→11:27)
[2018-02-19] MEDS: CEFOXITIN IV 2,000 MG in DEXTROSE 5% 50ML 50 ML IV SCH ×3 (06:23→19:16)
--- NOTE | 2018-02-19 07:19 | Family Medicine Progress Note ---
Progress Note Date of Service Feb 19, 2018. Subjective Pain: improving PO Intake: advance as tolerated Voiding: no voiding problems Patient was recovering well when we examined him. Reported significant improvement in pain. Additional Comments: Deferred 2/2 surgical post op. Question the results of the kidney scan Medications Current Inpatient Medications Medications (Trade) Dose Ordered Sig/Kajal Route Start Time Stop Time Status Last Admin Dose Admin Ioversol (Optiray 320) 111 ml UD PRN IV 02/18/18 22:00 02/22/18 21:59 Acetaminophen 650 mg/Empty Bag 65 ml @ 260 mls/hr Q4 PRN IV 02/19/18 01:30 03/21/18 01:29 02/19/18 05:56 260 MLS/HR Cefoxitin Sodium 2000 mg/Dextrose 60 ml @ 100 mls/hr Q6H IV 02/19/18 07:00 02/21/18 06:59 02/19/18 06:23 100 MLS/HR Acetaminophen (Tylenol Tab) 650 mg Q4H PRN PO 02/19/18 02:00 03/21/18 01:59 Al Hydrox/Mg Hydrox/Simethicone (Maalox Max Susp) 15 ml Q4H PRN PO 02/19/18 02:00 03/21/18 01:59 Magnesium Hydroxide (Milk Of Magnesia Susp) 30 ml Q6H PRN PO 02/19/18 02:00 03/21/18 01:59 Polyethylene (Miralax Powder Packet) 17 gm DAILY PRN PO 02/19/18 02:00 03/21/18 01:59 Ondansetron HCl (Zofran Inj) 4 mg Q6H PRN IV 02/19/18 02:00 03/21/18 01:59 02/19/18 05:45 4 MG Pantoprazole Sodium 40 mg/ Syringe 10 ml @ 5 mls/min DAILY@09,21 IV 02/19/18 09:00 03/21/18 08:59 Fluoxetine HCl (Prozac Cap) 40 mg DAILY PO 02/19/18 09:00 03/21/18 08:59 Sodium Chloride 1,000 ml @ 100 mls/hr Q10H IV 02/19/18 02:00 03/21/18 01:59 02/19/18 03:46 100 MLS/HR Objective Vital Signs Date Time Temp Pulse Resp B/P (MAP) Pulse Ox O2 Delivery O2 Flow Rate FiO2 02/19/18 06:33 37.1 02/19/18 06:30 39.1 02/19/18 03:15 37.6 78 15 123/80 96 Room Air 02/19/18 03:05 Room Air 02/19/18 02:57 38.2 86 18 115/77 97 02/19/18 01:07 38.6 80 18 133/75 99 Room Air 02/18/18 23:41 37.8 70 18 132/76 97 Room Air 02/18/18 21:51 73 18 128/69 98 Room Air 02/18/18 21:35 37.5 02/18/18 18:41 38.1 81 18 123/73 96 Room Air Physical Exam General Appearance: WD/WN, no apparent distress Eyes: sclerae normal ENT: hearing grossly normal Respiratory/Chest: no respiratory distress Neurologic/Psychiatric: alert, normal mood/affect, oriented x 3 Skin: normal color, warm/dry Laboratory Results Last Resulted 02/18/18 19:48 Red Blood Count 4.44, Mean Corpuscular Volume 88.7, Mean Corpuscular Hemoglobin 30.6, Mean Corpuscular Hemoglobin Concent 34.5, Mean Platelet Volume 8.9, Neutrophils (%) (Auto) 75.6, Lymphocytes (%) (Auto) 12.6, Monocytes (%) (Auto) 11.1, Eosinophils (%) (Auto) 0.2, Basophils (%) (Auto) 0.5, Neutrophils # (Auto ) 3.12, Lymphocytes # (Auto) 0.52, Monocytes # (Auto) 0.46, Eosinophils # (Auto ) 0.01, Basophils # (Auto) 0.02 Last Resulted 02/18/18 19:48 Past 24 Hours Test 02/18/18 19:48 Range/Units Total Creatine Kinase 94 39-308 U/L Troponin I < 0.015 0-0.045 ng/ml Assessment and Plan 52 yo previously healthy M presenting with Abdominal pain x 5 days , Nausea, febrile on arrival, found to have Gall bladder thinking of unclear etiology on CT and Abdominal u/s. In the ED, patient arrived febrile in 38.1-38.6, otherwise VSS. He had no Leukocytosis, UA was negative. Lyme EBV serology pending. CT Abdomen showing gallbladder wall thickening and 17 mm renal mass incidentally. Abdominal u/s showed gall bladder thickening with possible intraluminal sludge CBD borderline dilated at 7 mm, exophytic right renal cyst, hepatic steatosis ( Per Stat Rad). Given Cefoxitin . Abdominal pain, Fever - S/P cholecystectomy POD # 0 - Advance diet as tolerated - Did not complete HIDA 2/2 to pain - post-op dx acalculous cholecystitis - CBC, CMP, UA unremarkable. - CT Abdomen showing gallbladder wall thickening of unknown etiology and 17 mm renal mass incidental - Abdominal u/s showed gall bladder thickening with possible intraluminal sludge CBD borderline dilated at 7 mm - IV Protonix Drip, IV NS - Gastroenterology consult -Intraop cholangiogram w/o filling defect, GI will sign off; call if new questions/concerns arise. - Pain control - Lyme negative, EBV Neg Exophytic Renal cyst - per [facility] Abdominal u/s report -Indeterminate 17 mm right renal mass. A dedicated renal CT scan or MRI is recommended in f/u to differentiate a hyperdense cyst from solid renal neoplasm - For Renal MRI tomorrow - Urology f/u outpatient Depression/Anxiety - restarted Home Fluoxetine DVT PPX: SCD Code Status: Full Disp: Admit to Med/surg, d/c pending abx requirements and adequate pain control Resident Physician Supervision Note: I interviewed and examined the patient. Discussed with Dr. Barron and agree with findings and plan as documented in the note. Any exceptions or clarifications are listed here: None Documented By: Domenic Carrera abdominal pain feeling better needing O2 this afternoon but doesn't feel sob wonders if GB could be causing chronic b/l neck pain and headaches vitals noted. nad fatigued. lungs quiet b/l no accessory muscles no r/r/w but diminished air entry throughout. ost - L>R suboccipitals high tone/tender/decreased ROM - inhibitory pressure - improved some cholecystitis - now post op hypoxia - appearing atelectasis. did IS w some cough and improvement neck pain - appearing muscular somatic dysfunction cervical - OMT as above Continued [facility] stay due to: inadequate oral pain control Discharge planning: home Resident Tracking Resident Involvement: Resident Care Provided Care Provided: Adult Hospital Medicine
--- NOTE | 2018-02-19 07:30 | DIAGNOSTIC IMAGING REPORT ---
ABDOMINAL ULTRASOUND, RIGHT UPPER QUADRANT HISTORY: Abnormal CT. Fever. Upper abdominal pain.. COMPARISON: Abdomen and pelvis CT 02/18/2018. FINDINGS: Pancreas: The pancreatic tail is obscured by overlying bowel gas. The remaining portions of the pancreas are within normal limits. Liver: The liver is echogenic consistent with fatty change. Subtle hypoechoic areas adjacent to the gallbladder suggestive of focal fatty sparing. Gallbladder: Diffuse gallbladder wall thickening/edema measuring up to 6 mm. The gallbladder is filled with sludge. CBD: 7 mm. Right kidney: No hydronephrosis. There is an exophytic 1.7 cm lesion. This favors a simple cyst but may demonstrate internal echoes. IMPRESSION: 1. Diffuse gallbladder wall thickening/edema. The gallbladder is filled with sludge. This is nonspecific but can be seen the setting of hepatocellular disease or possibly acute cholecystitis. 2. Hepatic steatosis. 3. Common bile duct is mildly distended at 7 mm. 4. A 1.7 cm exophytic lesion within the right kidney which favors a cyst. However, this may contain internal echoes. Follow-up nonemergent dedicated renal CT or MRI is recommended for further evaluation. Electronically signed by: Oc Kline M.D. 02/19/2018 7:29 AM Dictated Date/Time: 02/19/2018 7:24 AM
[2018-02-19] MEDS: FLUOXETINE HCL 20 MG CAP PO SCH ×2 (09:00→19:29)
[2018-02-19] MEDS: PANTOprazole INJ 40 MG in SYRINGE 0 ML IV SCH ×2 (09:00→21:47)
--- NOTE | 2018-02-19 09:54 | Surgery Progress Note ---
Surgery Progress Note Date of Service Feb 19, 2018. Subjective 52 year old male with 1 week of fevers, nausea. He had abdominal pain earlier in the week but resolved. No association with food. CT with thickened gallbladder wall, RUQUS with no stones, thickened GBW, borderline CBD, no pericholecystic fluid. HIDA scheduled for this morning. Objective Vital Signs: Date Time Temp Pulse Resp B/P (MAP) Pulse Ox O2 Delivery O2 Flow Rate FiO2 02/19/18 07:57 38.6 92 16 120/74 (89) 94 Room Air 02/19/18 06:33 37.1 02/19/18 06:30 39.1 02/19/18 03:15 37.6 78 15 123/80 96 Room Air 02/19/18 03:05 Room Air 02/19/18 02:57 38.2 86 18 115/77 97 02/19/18 01:07 38.6 80 18 133/75 99 Room Air 02/18/18 23:41 37.8 70 18 132/76 97 Room Air 02/18/18 21:51 73 18 128/69 98 Room Air 02/18/18 21:35 37.5 02/18/18 18:41 38.1 81 18 123/73 96 Room Air General Appearance: WD/WN, no apparent distress Head: normocephalic, atraumatic Neck: supple, no adenopathy, thyroid normal, no JVD, no carotid bruits, trachea midline Respiratory/Chest: chest non-tender, lungs clear, normal breath sounds, no respiratory distress, no accessory muscle use Cardiovascular: regular rate, rhythm, no edema, no gallop, no JVD, no murmur Abdomen: normal bowel sounds, non distended, soft, no organomegaly, no pulsatile mass, + tenderness (RUQ tenderness) Laboratory Results: Results Past 24 Hours Test 02/18/18 19:41 02/18/18 19:48 02/18/18 20:04 Range/Units Urine Color YELLOW Urine Appearance CLEAR CLEAR Urine pH 6.0 4.5-7.5 Urine Specific [place] 1.014 1.000-1.030 Urine Protein TRACE NEG Urine Glucose (UA) 1+ NEG Urine Ketones NEG NEG Urine Occult Blood NEG NEG Urine Nitrite NEG NEG Urine Bilirubin NEG NEG Urine Urobilinogen NEG NEG Urine Leukocyte Esterase NEG NEG Urine WBC (Auto) 1-5 0-5 /hpf Urine RBC (Auto) 0-4 0-4 /hpf Urine Hyaline Casts (Auto) 0 0-5 /lpf Urine Epithelial Cells (Auto) 0-5 0-5 /lpf Urine Bacteria (Auto) NEG NEG White Blood Count 4.13 4.8-10.8 K/uL Red Blood Count 4.44 4.7-6.1 M/uL Hemoglobin 13.6 14.0-18.0 g/dL Hematocrit 39.4 42-52 % Mean Corpuscular Volume 88.7 80-100 fL Mean Corpuscular Hemoglobin 30.6 25-34 pg Mean Corpuscular Hemoglobin Concent 34.5 32-36 g/dl Platelet Count 130 130-400 K/uL Mean Platelet Volume 8.9 7.4-10.4 fL Neutrophils (%) (Auto) 75.6 % Lymphocytes (%) (Auto) 12.6 % Monocytes (%) (Auto) 11.1 % Eosinophils (%) (Auto) 0.2 % Basophils (%) (Auto) 0.5 % Neutrophils # (Auto) 3.12 1.4-6.5 K/uL Lymphocytes # (Auto) 0.52 1.2-3.4 K/uL Monocytes # (Auto) 0.46 0.11-0.59 K/uL Eosinophils # (Auto) 0.01 0-0.5 K/uL Basophils # (Auto) 0.02 0-0.2 K/uL RDW Standard Deviation 41.7 36.4-46.3 fL RDW Coefficient of Variation 12.9 11.5-14.5 % Immature Granulocyte % (Auto) 0.0 % Immature Granulocyte # (Auto) 0.00 0.00-0.02 K/uL Sodium Level 135 136-145 mmol/L Potassium Level 3.8 3.5-5.1 mmol/L Chloride Level 101 98-107 mmol/L Carbon Dioxide Level 27 21-32 mmol/L Anion Gap 7.0 3-11 mmol/L Blood Urea Nitrogen 13 7-18 mg/dl Creatinine 0.90 0.60-1.40 mg/dl Est Creatinine Clear Calc Drug Dose 90.8 ml/min Estimated GFR () 114.2 Estimated GFR (Non- 98.5 BUN/Creatinine Ratio 14.1 10-20 Random Glucose 114 70-99 mg/dl Calcium Level 8.5 8.5-10.1 mg/dl Magnesium Level 2.2 1.8-2.4 mg/dl Total Bilirubin 0.8 0.2-1 mg/dl Aspartate Amino Transf (AST/SGOT) 45 15-37 U/L Alanine Aminotransferase (ALT/SGPT) 58 12-78 U/L Alkaline Phosphatase 78 45-117 U/L Total Creatine Kinase 94 39-308 U/L Troponin I < 0.015 0-0.045 ng/ml Total Protein 7.2 6.4-8.2 gm/dl Albumin 3.7 3.4-5.0 gm/dl Globulin 3.5 2.5-4.0 gm/dl Albumin/Globulin Ratio 1.1 0.9-2 Lipase 155 73-393 U/L Thyroid Stimulating Hormone (TSH) 1.570 0.300-4.500 uIu/ml Lyme Disease IgG Antibody NEG NEG Lyme Disease IgM Antibody NEG NEG Monoscreen NEG NEG Bedside Lactic Acid Venous 0.92 0.90-1.70 mmol/L Diagnostic Interpretation: ABDOMINAL ULTRASOUND, RIGHT UPPER QUADRANT HISTORY: Abnormal CT. Fever. Upper abdominal pain.. COMPARISON: Abdomen and pelvis CT 02/18/2018. FINDINGS: Pancreas: The pancreatic tail is obscured by overlying bowel gas. The remaining portions of the pancreas are within normal limits. Liver: The liver is echogenic consistent with fatty change. Subtle hypoechoic areas adjacent to the gallbladder suggestive of focal fatty sparing. Gallbladder: Diffuse gallbladder wall thickening/edema measuring up to 6 mm. The gallbladder is filled with sludge. CBD: 7 mm. Right kidney: No hydronephrosis. There is an exophytic 1.7 cm lesion. This favors a simple cyst but may demonstrate internal echoes. IMPRESSION: 1. Diffuse gallbladder wall thickening/edema. The gallbladder is filled with sludge. This is nonspecific but can be seen the setting of hepatocellular disease or possibly acute cholecystitis. 2. Hepatic steatosis. 3. Common bile duct is mildly distended at 7 mm. 4. A 1.7 cm exophytic lesion within the right kidney which favors a cyst. However, this may contain internal echoes. Follow-up nonemergent dedicated renal CT or MRI is recommended for further evaluation. CT ABD/PELVIS IV CONTRAST ONLY CLINICAL HISTORY: Upper abdominal pain and fever COMPARISON STUDY: Conventional radiographic study dated 02/18/2018 TECHNIQUE: Following the IV administration of 115 mL of Optiray-320, CT scan of the abdomen and pelvis was performed from the lung bases to the proximal femurs. Images are reviewed in the axial, sagittal, and coronal planes. IV contrast was administered without complication. A dose lowering technique was utilized adhering to the principles of ALARA. CT DOSE: 301.32 mGy.cm FINDINGS: Lower chest: There are mild dependent atelectatic changes. Liver: The contrast-enhanced liver is normal in size, contour, and attenuation. There is no intrahepatic biliary ductal dilatation. The hepatic veins and portal veins are patent. Gallbladder: No calculi are visualized. There is moderate gallbladder wall thickening. Spleen: Upper limits of normal in size measuring 12.2 cm. There is a splenic artery calcification which explains the calcific density described on the recent abdominal series. Pancreas: Unremarkable. Adrenal glands: Unremarkable. Kidneys: There is an indeterminate 17 mm right renal mass. A dedicated renal CT scan or MRI is recommended in follow-up to differentiate a hyperdense cyst from solid renal neoplasm Bowel: There are no transition zones indicate bowel obstruction. There is no acute diverticulitis. There are no findings to indicate acute appendicitis. Peritoneum: There is no intraperitoneal free air or abdominal ascites. Vasculature: The abdominal aorta is normal in course and caliber. Adenopathy: None. Pelvic viscera: There is mild prostamegaly Skeletal structures: There are scattered sclerotic densities, statistically representing bone islands. Degenerative changes are present within the lower lumbar spine IMPRESSION: 1. No evidence of bowel obstruction. No evidence of free air 2. No evidence of acute appendicitis. No evidence of acute diverticulitis 3. Unexplained gallbladder wall thickening. Correlation with liver function tests is recommended as this finding can be seen in hepatocellular disease. 4. Indeterminate 17 mm right renal mass. A dedicated renal CT scan or MRI is recommended in follow-up to differentiate a hyperdense cyst from solid renal neoplasm Assessment & Plan possible acalculous cholecystitis, though rare in young healthy individual. HIDA pending. We discussed surgery if necessary. follow up HIDA if HIDA positive, plan for laparoscopic cholecystectomy with possible cholangiogram risks discussed to include bleeding, infection, damage to bile duct or other structures, conversion to open, need for future or more extensive surgery, retained stone or bile leak, and risks of anesthesia Dr. Dee covering over weekend
[2018-02-19] MEDS ORDERED: MoRPHine SULFATE 2 MG/ML CARP ONE (10:19)
--- NOTE | 2018-02-19 10:45 | DIAGNOSTIC IMAGING REPORT ---
NUCLEAR MEDICINE HEPATOBILIARY SCAN HISTORY: Right upper quadrant abdominal pain, fever, GB thickening COMPARISON: Abdominal ultrasound 02/18/2018. TECHNIQUE: Immediately following the intravenous administration of 5.5 mCi Tc-99m Choletec, dynamic anterior abdominal imaging was performed for total of 35 minutes. The patient was unable to complete the entire examination. A single static image at 60 minutes was also obtained. FINDINGS: Uniform hepatic tracer accumulation is shown. Prompt intrahepatic biliary excretion is seen. The common bile duct and small bowel are visualized by 10 minutes. However, the gallbladder was not identified during the initial 35 minutes. A single static image at 1 hour was also obtained. The gallbladder was not identified at the 1 hour time interval. The patient refused additional imaging. IMPRESSION: The gallbladder was not identified during the first hour of imaging. The patient refused additional imaging. Therefore this is nonspecific and could represent an acute or chronic cholecystitis. Clinical correlation recommended. Electronically signed by: Oc Kline M.D. 02/19/2018 10:44 AM Dictated Date/Time: 02/19/2018 10:41 AM
--- NOTE | 2018-02-19 11:48 | Gastrointestinal Consultation ---
Gastrointestinal Consultation Date of Consultation: Feb 19, 2018 Attending Physician: Joseph Jensen Consulting Physician: Steven Su Reason for Consultation: CBD dilation, gallbladder thickening History of Present Illness Patient is a 52 year old male w PMHx of depression and anxiety who presented to ED w c/o upper abd pain x 5 days associated with n/v, fever, chills, body aches. Hx of tick bite w/o rash a few weeks ago, Lyme testing pending. Denies any bowel habit changes. He drinks 5 cans of beers a day, + chews tobacco, no illicit drugs. Denies any NSAIDs, been taking Tylenol for fever recently. Labs showed no signs of leukocytosis, H/H close to normal. CMP including LFTs, Lipase also normal. Imaging studies: - Chest/abd xray: normal - CT abd/pelvis w contrast: 1. No evidence of bowel obstruction. No evidence of free air 2. No evidence of acute appendicitis. No evidence of acute diverticulitis 3. Unexplained gallbladder wall thickening. Correlation with liver function tests is recommended as this finding can be seen in hepatocellular disease. 4. Indeterminate 17 mm right renal mass. A dedicated renal CT scan or MRI is recommended in follow-up to differentiate a hyperdense cyst from solid renal neoplasm - Gallbladder u/s: 1. Diffuse gallbladder wall thickening/edema. The gallbladder is filled with sludge. This is nonspecific but can be seen the setting of hepatocellular disease or possibly acute cholecystitis. 2. Hepatic steatosis. 3. Common bile duct is mildly distended at 7 mm. 4. A 1.7 cm exophytic lesion within the right kidney which favors a cyst. However, this may contain internal echoes. Follow-up nonemergent dedicated renal CT or MRI is recommended for further evaluation. - HIDA scan: The gallbladder was not identified during the first hour of imaging. The patient refused additional imaging. Therefore this is nonspecific and could represent an acute or chronic cholecystitis. Clinical correlation recommended. Past Medical/Surgical History Medical Problems: (1) Abdominal pain Status: Acute (2) Fever Status: Acute Past Medical History: See HPI Past Surgical History: None Family History FH: cancer No pertinent family history Social History Smoking Status: Never Smoker Alcohol Use: occasionally Drug Use: none Marital Status: Housing Status: lives with significant other Occupation Status: employed Allergies Coded Allergies: Erythromycin (Unverified Allergy, Unknown, HIVES, 02/18/18) Current Medications Home Meds and Scripts Medications Dose Route/Sig Max Daily Dose Days Date Category Monodox (Doxycycline Monohydrate) 100 Mg Cap 100 Mg PO BID 21 02/18/18 Rx Prozac (Fluoxetine Hcl) 40 Mg Cap 40 Mg PO DAILY 02/18/18 Reported Review of Systems Constitutional: + fever, + chills Respiratory: No cough, No shortness of breath Cardiac: No chest pain Abdomen: + pain, + nausea, + vomiting, No diarrhea, No GI bleeding Skin: No rash, No itch Physical Exam Date Time Temp Pulse Resp B/P (MAP) Pulse Ox O2 Delivery O2 Flow Rate FiO2 02/19/18 07:57 38.6 92 16 120/74 (89) 94 Room Air 02/19/18 07:40 Room Air 02/19/18 06:33 37.1 02/19/18 06:30 39.1 02/19/18 03:15 37.6 78 15 123/80 96 Room Air 02/19/18 03:05 Room Air 02/19/18 02:57 38.2 86 18 115/77 97 02/19/18 01:07 38.6 80 18 133/75 99 Room Air 02/18/18 23:41 37.8 70 18 132/76 97 Room Air 02/18/18 21:51 73 18 128/69 98 Room Air 02/18/18 21:35 37.5 02/18/18 18:41 38.1 81 18 123/73 96 Room Air General Appearance: + mild distress (c/o nausea and abd pain ) Eyes: normal inspection, PERRL, EOMI Neck: supple, no JVD, trachea midline Respiratory/Chest: normal breath sounds, no respiratory distress, no accessory muscle use Cardiovascular: regular rate, rhythm, no gallop, no murmur Abdomen: soft, + abnormal bowel sounds (hypoactive ), + tenderness (pt reports feeling tender on upper abd but on palpation he isn't grimacing or guarding. ) Extremities: normal inspection, no pedal edema, no calf tenderness Neurologic/Psych: alert, normal mood/affect, oriented x 3 Skin: normal color, no jaundice, no rash Laboratory Results Last 24 Hours Test 02/18/18 19:41 02/18/18 19:48 02/18/18 20:04 Urine Color YELLOW Urine Appearance CLEAR Urine pH 6.0 Urine Specific [place] 1.014 Urine Protein TRACE Urine Glucose (UA) 1+ Urine Ketones NEG Urine Occult Blood NEG Urine Nitrite NEG Urine Bilirubin NEG Urine Urobilinogen NEG Urine Leukocyte Esterase NEG Urine WBC (Auto) 1-5 /hpf Urine RBC (Auto) 0-4 /hpf Urine Hyaline Casts (Auto) 0 /lpf Urine Epithelial Cells (Auto) 0-5 /lpf Urine Bacteria (Auto) NEG White Blood Count 4.13 K/uL Red Blood Count 4.44 M/uL Hemoglobin 13.6 g/dL Hematocrit 39.4 % Mean Corpuscular Volume 88.7 fL Mean Corpuscular Hemoglobin 30.6 pg Mean Corpuscular Hemoglobin Concent 34.5 g/dl Platelet Count 130 K/uL Mean Platelet Volume 8.9 fL Neutrophils (%) (Auto) 75.6 % Lymphocytes (%) (Auto) 12.6 % Monocytes (%) (Auto) 11.1 % Eosinophils (%) (Auto) 0.2 % Basophils (%) (Auto) 0.5 % Neutrophils # (Auto) 3.12 K/uL Lymphocytes # (Auto) 0.52 K/uL Monocytes # (Auto) 0.46 K/uL Eosinophils # (Auto) 0.01 K/uL Basophils # (Auto) 0.02 K/uL RDW Standard Deviation 41.7 fL RDW Coefficient of Variation 12.9 % Immature Granulocyte % (Auto) 0.0 % Immature Granulocyte # (Auto) 0.00 K/uL Sodium Level 135 mmol/L Potassium Level 3.8 mmol/L Chloride Level 101 mmol/L Carbon Dioxide Level 27 mmol/L Anion Gap 7.0 mmol/L Blood Urea Nitrogen 13 mg/dl Creatinine 0.90 mg/dl Est Creatinine Clear Calc Drug Dose 90.8 ml/min Estimated GFR () 114.2 Estimated GFR (Non- 98.5 BUN/Creatinine Ratio 14.1 Random Glucose 114 mg/dl Calcium Level 8.5 mg/dl Magnesium Level 2.2 mg/dl Total Bilirubin 0.8 mg/dl Aspartate Amino Transf (AST/SGOT) 45 U/L Alanine Aminotransferase (ALT/SGPT) 58 U/L Alkaline Phosphatase 78 U/L Total Creatine Kinase 94 U/L Troponin I < 0.015 ng/ml Total Protein 7.2 gm/dl Albumin 3.7 gm/dl Globulin 3.5 gm/dl Albumin/Globulin Ratio 1.1 Lipase 155 U/L Thyroid Stimulating Hormone (TSH) 1.570 uIu/ml Lyme Disease IgG Antibody NEG Lyme Disease IgM Antibody NEG Monoscreen NEG Bedside Lactic Acid Venous 0.92 mmol/L Impression Patient is a 52 year old male w upper abd pain, n/v, fever, chills, body aches x 5 days. Imaging studies w gallbladder u/s, CT abd/pelvis w IV contrast and HIDA showed gallbladder wall thickening, sludge, no stones, CBD 7mm. HIDA showed no uptake on gallbladder and may represent cholecystitis. Plan - Surgery planning to take him for lap cholecystectomy; Discussed with Surgery and if IOC (intra op cholangiogram) is positive for CBD stone, to call us. - F/U with primary team for renal mass workup. Addendum: Intraop cholangiogram w/o filling defect, GI will sign off; call if new questions/concerns arise. ATTESTATION: I have performed a history and physical examination of this patient and reviewed the electronic record. Specifically, on physical examination there is mild postoperative tenderness. Review of OR cholangiogram shows no filling defects. I have discussed the case with Karoline OLIVAS. The above note reflects my findings, conclusions, and recommendations. Steven Su MD
[2018-02-19] MEDS ORDERED: FENTANYL CITRATE INJ 50 MCG/1 ML 2 ML VIAL ONE ×2 (12:09→13:25)
[2018-02-19] MEDS ORDERED: MIDAZOLAM HCL 1 MG/ML 2ML VIAL ONE (12:09)
[2018-02-19] MEDS ORDERED: EpHEDrine SULFATE INJ 50 MG/ML AMP IV PRN (12:15)
[2018-02-19] MEDS ORDERED: ONDANSETRON INJ 2 MG/ML 2 ML VIAL IV PRN (12:15)
[2018-02-19] MEDS ORDERED: HYDROmorphone INJ 1 MG/ML SYR IV PRN (12:15)
[2018-02-19] MEDS ORDERED: ATROPINE SULFATE 0.1 MG/ML 5ML SYR IV PRN (12:15)
[2018-02-19] MEDS ORDERED: FENTANYL CITRATE INJ 50 MCG/1 ML 2 ML VIAL IV PRN (12:15)
[2018-02-19] MEDS ORDERED: BUPIVACAINE 0.5 % 5 MG/1 ML PF 10ML VIAL ONE (12:37)
--- NOTE | 2018-02-19 12:56 | History & Physical Bridge Note ---
H&P Re-Evaluation Bridge Note: I have examined the patient, reviewed the History & Physical and in the interval since the performance of the History & Physical I have noted the following changes of clinical significance: HIDA with no filling of gallbladder at 1 hour, likely cholecystitis. Plan to proceed with lap cholecystectomy with possible cholangiogram. No changes noted
[2018-02-19] MEDS ORDERED: OXYC-57 PO (13:01)
--- NOTE | 2018-02-19 13:02 | Discharge Instructions ---
Discharge Instructions Date of Service Feb 19, 2018. Admission Reason for Admission: Upper Abdominal Pain Discharge Discharge Diagnosis / Problem: laparoscopic cholecystectomy Discharge Goals Goal(s): Decrease discomfort Activity Recommendations Activity Limitations: as noted below Lifting Limitations: no more than 10 pounds Shower/Bathe: no limitations Driving or Machine Use: resume 3 days after discharge . Instructions / Follow-Up Instructions / Follow-Up Dr. Barajas in 1-2 weeks, call the office [phone] to [address] Current Hospital Diet Patient's current hospital diet: Discharge Diet Recommended Diet: Regular Diet Pending Studies Studies pending at discharge: no Medical Emergencies . Who to Call and When: Medical Emergencies: If at any time you feel your situation is an emergency, please call 911 immediately. . Non-Emergent Contact Non-Emergency issues call your: Surgeon Call Non-Emergent contact if: you have a fever, temperature is above 101.5, your pain is not controlled, wound has increased redness, wound has increased pain, you have any medication questions . "Provider Documentation" section prepared by Edgar James. . [place] Drug Monitoring Program Search Results: no issues identified
[2018-02-19] MEDS ORDERED: PROPOFOL IV EMULSION 10 MG/ML 20 ML VIAL ONE (13:21)
[2018-02-19] MEDS ORDERED: ROCURONIUM BROMIDE 10 MG/ML 5 ML VIAL ONE (13:21)
[2018-02-19] MEDS ORDERED: LIDOCAINE HCL 2% 2 ML VIAL (20MG/ML) ONE (13:21)
[2018-02-19] MEDS ORDERED: SUCCINYLCHOLINE 100MG/5ML SYR IV ONE (13:21)
[2018-02-19] MEDS ORDERED: DEXAMETHASONE SOD INJ 4 MG/ML VIAL ONE (13:22)
[2018-02-19] MEDS ORDERED: ONDANSETRON INJ 2 MG/ML 2 ML VIAL ONE (13:22)
--- NOTE | 2018-02-19 13:54 | DIAGNOSTIC IMAGING REPORT ---
CHOLANGIOGRAM O.R. HISTORY: Post cholecystectomy. FLUOROSCOPY TIME: 12 seconds. FINDINGS: Fluoroscopy was provided for an intraoperative cholangiogram status post cholecystectomy. Contrast was injected through the cystic duct remnant. The common bile duct is normal in course and caliber. There are no filling defects seen within the common bile duct to suggest a retained stone. Contrast extends into the small bowel. There is no intrahepatic bile duct dilatation. IMPRESSION: Fluoroscopy provided for an intraoperative cholangiogram status post cholecystectomy. No filling defects within the common bile duct. Normal flow of contrast to the duodenum. The above report was generated using voice recognition software. It may contain grammatical, syntax or spelling errors. Electronically signed by: aCrlos Pack M.D. 02/19/2018 1:53 PM Dictated Date/Time: 02/19/2018 1:52 PM
[2018-02-19] MEDS ORDERED: NEOSTIGMINE METHYLSULFATE 5 MG/5 ML SYR ONE (13:56)
[2018-02-19] MEDS ORDERED: GLYCOPYRROLATE INJ 0.2 MG/ML VIAL ONE (13:56)
[2018-02-19] MEDS ORDERED: KETOROLAC TROMETHAMINE 30 MG/ML VIAL ONE (13:59)
--- NOTE | 2018-02-19 14:04 | [facility] Post Operative Brief Note ---
Immediate Operative Summary Operative Date Feb 19, 2018. Pre-Operative Diagnosis acalculous cholecystitis Post-Operative Diagnosis Same Procedure(s) Performed Laparoscopic Cholecystectomy with Cholangiogram Surgeon Dr. Barajas Care Team Assistant Surgeon(s) Gloria James PA-C Estimated Blood Loss 5mL Findings Consistent with Post-Op Diagnosis Window of safety obtained. Cholangiogram with no filling defect. Specimens A: gallbladder & contents Drains None Anesthesia Type General Complication(s) none Disposition Accompanied Pt To Recover: no Disposition: Recovery Room / PACU
--- NOTE | 2018-02-19 14:09 | [facility] Operative Report ---
Operative Report Operative Date Feb 19, 2018. Pre-Operative Diagnosis acalculous cholecystitis Post-Operative Diagnosis Same Procedure(s) Performed Laparoscopic cholecystectomy with cholangiogram Surgeon Dr. Barajas Shade Maker Surgeon(s) Gloria James PA-C Estimated Blood Loss 5mL Findings Acute cholecystitis. Window of safety obtained. Cholangiogram with no filling defects. Specimens A: gallbladder & contents Drains None Anesthesia General Complication(s) None Disposition Recovery Room / PACU Indications 52-year-old male with acute acalculous cholecystitis, plan for laparoscopic cholecystectomy with possible cholangiogram. The risks of the procedure were discussed, all questions were answered, and the patient agreed to proceed with surgery as planned. Description of Procedure The patient was properly identified, consented, and taken to the operating room where he was placed in the supine position. General endotracheal anesthesia was induced. SCDs and a safety belt were placed. Preoperative antibiotics were administered. The patient's abdomen was prepped and draped in the standard sterile fashion. A surgical timeout was performed and all parties were in agreement that this was the correct patient and procedure to be performed and we continued as planned. An incision was made superior and to the left of the umbilicus overlying the rectus muscle and the Veress needle was inserted. Saline drop test confirmed entry into the peritoneum. The abdomen was insufflated with carbon dioxide which the patient tolerated without incident. The abdomen was then entered using the Optiview technique and a 5 mm trocar. The laparoscope was inserted and no damage from initial trocar or Veress needle placement was noted, no gross abnormalities were noted within the 4 quadrants of the abdomen. An 11 mm port was placed in the subxiphoid position and two 5 mm ports were then placed in the right subcostal position. The patient was placed in reverse Trendelenburg position and rotated towards the left. There was evidence of acute cholecystitis and the gallbladder was very tense. The gallbladder was aspirated and contained dark bilious material. The dome of the gallbladder was retracted towards the left upper quadrant and the infundibulum was retracted toward the right lower quadrant revealing Calot's triangle. Peritoneal attachments were taken down with electrocautery and blunt dissection. The cystic duct and artery were circumferentially dissected. A window of safety was obtained showing the cystic duct entering the gallbladder with no aberrant structures noted. The Fidel cholangiocatheter was then used to perform an intraoperative cholangiogram which showed no filling defects, and good filling of the duodenum and hepatic radicals with contrast. The cystic duct and artery were doubly clipped and divided. The gallbladder was then lifted off the gallbladder fossa with electrocautery. The gallbladder was placed in an Endo Catch bag and removed through the subxiphoid port site. The right upper quadrant was irrigated and hemostasis was found to be good. 5 mm trochars were removed under direct visualization and the abdomen was allowed to collapse. The subxiphoid port site fascia was closed with 0 Vicryl suture. The wound was irrigated, and the skin of all ports was closed with 4-0 Monocryl subcuticular sutures. Dermabond was placed over the wounds. The patient was extubated in the operating room and taken to the PACU where he recovered without apparent incident. All sponge, instrument and needle counts were correct at the conclusion of the procedure. The patient tolerated the procedure well. Physician's embalmer assistant was present and scrubbed for the entire to the procedure. He was critical in positioning the patient, prepping and draping, retraction and exposure, driving the laparoscope, removal of the gallbladder, closure the incisions, and placement of the dressings. I attest to the content of the Intraoperative Record and any orders documented therein. Any exceptions are noted below.
[2018-02-19] MEDS ORDERED: MoRPHine SULFATE 4 MG/ML 1 ML CARP\\VIAL IV PRN (14:15)
[2018-02-19] MEDS ORDERED: OXYCODONE/ACETAMINOPHEN 5-325 TAB PO PRN ×2 (14:15)
[2018-02-19] MEDS ORDERED: ALBUT/IPRATROP 3MG/0.5MG NEB 3 ML VIAL INH PRN (14:45)
--- NOTE | 2018-02-19 15:39 | Anesthesiology Progress Note ---
Anesthesia Post Op Note Date & Time Feb 19, 2018 at 15:36 Vital Signs Pain Intensity: 0 Vital Signs Past 12 Hours Date Time Temp Pulse Resp B/P (MAP) Pulse Ox O2 Delivery O2 Flow Rate FiO2 02/19/18 15:30 83 18 118/74 94 Nasal Cannula 4 02/19/18 15:25 36.4 96 19 115/78 95 Nasal Cannula 4 02/19/18 15:15 100 23 138/86 90 Nasal Cannula 3 02/19/18 15:05 98 18 135/75 94 Nasal Cannula 4 02/19/18 14:55 94 17 137/86 92 Nasal Cannula 3 02/19/18 14:45 89 14 147/74 97 Oxymask 10 02/19/18 14:36 86 22 95 Mask 11.0 02/19/18 14:35 87 15 124/82 96 Oxymask 10 02/19/18 14:25 37.1 85 17 136/69 87 Oxymask 10 02/19/18 07:57 38.6 92 16 120/74 (89) 94 Room Air 02/19/18 07:40 Room Air 02/19/18 06:33 37.1 02/19/18 06:30 39.1 Notes Mental Status: alert / awake / arousable, participated in evaluation Pt Amnestic to Procedure: Yes Nausea / Vomiting: adequately controlled Pain: adequately controlled Airway Patency, RR, SpO2: stable & adequate BP & HR: stable & adequate Hydration State: stable & adequate Anesthetic Complications: no major complications apparent Patient had SpO2 of 94% on RA prior to the procedure. In PACU, he required NC oxygen and will continue to be on this on the floor. He denied any SOB and c/o minimal pain from the surgery. He did receive a nebulizer treatment in postop for very faint crackles heard b/l lung bases. This improved with the respiratory treatment. Given that he was being sent to the floor on NC oxygen, will also ensure patient has continuous pulse oximetry. Patient is agreeable with the plan.
--- NOTE | 2018-02-19 22:03 | DIAGNOSTIC IMAGING REPORT ---
MRI ABDOMEN COMBO CLINICAL HISTORY: Right renal mass. COMPARISON STUDY: CT of the abdomen and pelvis February 18, 2018. TECHNIQUE: Utilizing a 1.5 Marleny magnet and dedicated coil, multiplanar, multiecho imaging of the abdomen was performed pre and postcontrast administration. Post contrast imaging was performed following intravenous injection of 7.3 cc of Gadavist. FINDINGS: A 1.7 cm lesion within the upper pole of the right kidney is inherently T1 hyperintense and demonstrates no enhancement. This represents a proteinaceous/hemorrhagic cyst. This is benign. No enhancing renal lesions are present. There is no hydronephrosis. A few subcentimeter left renal cysts are noted. There are expected findings following recent cholecystectomy. There is no biliary or pancreatic ductal dilatation. The spleen, adrenal glands and pancreas are unremarkable. There is no abdominal adenopathy. There may be trace fluid within the pelvis. IMPRESSION: 1.7 cm nonenhancing T1 hyperintense, T2 hypointense right renal lesion which corresponds to the lesion shown on CT. This represents a proteinaceous/hemorrhagic cyst and is benign. Electronically signed by: Rubens Rucker M.D. 02/19/2018 10:02 PM Dictated Date/Time: 02/19/2018 9:55 PM
[2018-02-20] MEDS: SODIUM CHLORIDE 0.9% 1000ML 1,000 ML IV SCH ×2 (00:01→08:56)
[2018-02-20 00:30] VITALS: O2SAT 94
[2018-02-20] MEDS: CEFOXITIN IV 2,000 MG in DEXTROSE 5% 50ML 50 ML IV SCH ×3 (01:05→12:58)
[2018-02-20 03:04] VITALS: BP 122/73; PULSE 75; TEMP 36.3; O2SAT 97
[2018-02-20] MEDS: ACETAMINOPHEN 325 MG TAB PO PRN ×3 (06:19→17:34)
--- NOTE | 2018-02-20 07:22 | Family Medicine Progress Note ---
Progress Note Date of Service Feb 20, 2018. Medications Current Inpatient Medications Medications (Trade) Dose Ordered Sig/Kajal Route Start Time Stop Time Status Last Admin Dose Admin Ioversol (Optiray 320) 111 ml UD PRN IV 02/18/18 22:00 02/22/18 21:59 Acetaminophen 650 mg/Empty Bag 65 ml @ 260 mls/hr Q4 PRN IV 02/19/18 01:30 03/21/18 01:29 02/19/18 22:20 260 MLS/HR Cefoxitin Sodium 2000 mg/Dextrose 60 ml @ 100 mls/hr Q6H IV 02/19/18 07:00 02/21/18 06:59 02/20/18 06:21 100 MLS/HR Acetaminophen (Tylenol Tab) 650 mg Q4H PRN PO 02/19/18 02:00 03/21/18 01:59 02/20/18 06:19 650 MG Al Hydrox/Mg Hydrox/Simethicone (Maalox Max Susp) 15 ml Q4H PRN PO 02/19/18 02:00 03/21/18 01:59 Magnesium Hydroxide (Milk Of Magnesia Susp) 30 ml Q6H PRN PO 02/19/18 02:00 03/21/18 01:59 Polyethylene (Miralax Powder Packet) 17 gm DAILY PRN PO 02/19/18 02:00 03/21/18 01:59 Ondansetron HCl (Zofran Inj) 4 mg Q6H PRN IV 02/19/18 02:00 03/21/18 01:59 02/19/18 11:27 4 MG Pantoprazole Sodium 40 mg/ Syringe 10 ml @ 5 mls/min DAILY@09,21 IV 02/19/18 09:00 03/21/18 08:59 02/19/18 21:47 5 MLS/MIN Fluoxetine HCl (Prozac Cap) 40 mg DAILY PO 02/19/18 09:00 03/21/18 08:59 Sodium Chloride 1,000 ml @ 100 mls/hr Q10H IV 02/19/18 02:00 03/21/18 01:59 02/20/18 00:01 100 MLS/HR Oxycodone/ Acetaminophen (Percocet 5-325mg Tab) 1 tab Q4H PRN PO 02/19/18 14:15 03/05/18 14:14 Oxycodone/ Acetaminophen (Percocet 5-325mg Tab) 2 tab Q4H PRN PO 02/19/18 14:15 03/05/18 14:14 Morphine Sulfate (MoRPHine SULFATE INJ) 4 mg Q1H PRN IV 02/19/18 14:15 03/05/18 14:14 Fluoxetine HCl (Prozac Cap) 40 mg DAILY PO 02/19/18 18:00 03/21/18 17:59 02/19/18 19:29 40 MG Objective Vital Signs Date Time Temp Pulse Resp B/P (MAP) Pulse Ox O2 Delivery O2 Flow Rate FiO2 02/20/18 03:04 36.3 75 15 122/73 (89) 97 Nasal Cannula 2.0 02/20/18 00:30 94 Nasal Cannula 3.0 02/19/18 23:01 36.6 86 15 115/66 (82) 96 Nasal Cannula 2.0 02/19/18 19:07 36.3 95 18 109/72 (84) 93 Room Air 02/19/18 18:00 37.1 85 18 105/63 (77) 99 Nasal Cannula 3.0 02/19/18 17:13 36.6 86 16 106/63 (77) 95 Nasal Cannula 3.0 02/19/18 16:34 36.6 96 16 104/73 (83) 91 Nasal Cannula 3.0 02/19/18 15:45 94 Nasal Cannula 3.0 02/19/18 15:45 94 Nasal Cannula 3.0 02/19/18 15:45 36.8 87 16 112/70 (84) 94 Nasal Cannula 3.0 02/19/18 15:30 83 18 118/74 94 Nasal Cannula 4 02/19/18 15:25 36.4 96 19 115/78 95 Nasal Cannula 4 02/19/18 15:15 100 23 138/86 90 Nasal Cannula 3 02/19/18 15:05 98 18 135/75 94 Nasal Cannula 4 02/19/18 14:55 94 17 137/86 92 Nasal Cannula 3 02/19/18 14:45 89 14 147/74 97 Oxymask 10 02/19/18 14:36 86 22 95 Mask 11.0 02/19/18 14:35 87 15 124/82 96 Oxymask 10 02/19/18 14:25 37.1 85 17 136/69 87 Oxymask 10 02/19/18 07:57 38.6 92 16 120/74 (89) 94 Room Air 02/19/18 07:40 Room Air Assessment and Plan 52 yo previously healthy M presenting with Abdominal pain x 5 days , Nausea, febrile on arrival, found to have Gall bladder thinking of unclear etiology on CT and Abdominal u/s. In the ED, patient arrived febrile in 38.1-38.6, otherwise VSS. He had no Leukocytosis, UA was negative. Lyme EBV serology pending. CT Abdomen showing gallbladder wall thickening and 17 mm renal mass incidentally. Abdominal u/s showed gall bladder thickening with possible intraluminal sludge CBD borderline dilated at 7 mm, exophytic right renal cyst, hepatic steatosis ( Per Stat Rad). Given Cefoxitin . Abdominal pain, Fever - S/P cholecystectomy POD # 0 - Advance diet as tolerated - Did not complete HIDA 2/2 to pain - post-op dx acalculous cholecystitis - CBC, CMP, UA unremarkable. - CT Abdomen showing gallbladder wall thickening of unknown etiology and 17 mm renal mass incidental - Abdominal u/s showed gall bladder thickening with possible intraluminal sludge CBD borderline dilated at 7 mm - IV Protonix Drip, IV NS - Gastroenterology consult -Intraop cholangiogram w/o filling defect, GI will sign off; call if new questions/concerns arise. - Pain control - Lyme negative, EBV Neg Exophytic Renal cyst - per STAT[facility] Abdominal u/s report -Indeterminate 17 mm right renal mass. A dedicated renal CT scan or MRI is recommended in f/u to differentiate a hyperdense cyst from solid renal neoplasm - Renal MRI Showed: "1.7 cm nonenhancing T1 hyperintense, T2 hypointense right renal lesion which corresponds to the lesion shown on CT. This represents a proteinaceous/hemorrhagic cyst and is benign." - Urology f/u outpatient Depression/Anxiety - restarted Home Fluoxetine DVT PPX: SCD Code Status: Full Disp: Admit to Med/surg, d/c pending abx requirements and adequate pain control Resident Tracking Resident Involvement: Resident Care Provided Care Provided: Adult [facility] Medicine
[2018-02-20 08:04] VITALS: BP 113/71; PULSE 65; TEMP 36.5; O2SAT 95
[2018-02-20 08:18] LABS: BASO % 0.2 %; BASO ABS # 0.01 K/uL (0-0.2); HEMATOCRIT 39.8 % (42-52); HEMOGLOBIN 13.8 g/dL (14.0-18.0); IG# 0.02 K/uL (0.00-0.02); LYMPH % 15.4 %; LYMPH ABS # 0.97 K/uL (1.2-3.4); MEAN CELL VOLUME 87.9 fL (80-100); MEAN CORPUSCULAR HEMOGLOBIN 30.5 pg (25-34); MEAN CORPUSCULAR HGB CONC 34.7 g/dl (32-36); MEAN PLATELET VOLUME 9.3 fL (7.4-10.4); MONO ABS # 0.88 K/uL (0.11-0.59); NEUT % 70.1 %; NEUT ABS # 4.42 K/uL (1.4-6.5); PLATELET COUNT 156 K/uL (130-400); RED CELL DISTRIBUTION WIDTH CV 12.9 % (11.5-14.5); RED CELL DISTRIBUTION WIDTH SD 41.9 fL (36.4-46.3)
[2018-02-20 08:50] LABS: ALBUMIN 3.5 gm/dl (3.4-5.0); CALCIUM 8.5 mg/dl (8.5-10.1); CREATININE 1.01 mg/dl (0.60-1.40); POTASSIUM 3.8 mmol/L (3.5-5.1); TOTAL PROTEIN 7.1 gm/dl (6.4-8.2)
[2018-02-20] MEDS: PANTOprazole INJ 40 MG in SYRINGE 0 ML IV SCH (08:57)
[2018-02-20] MEDS: FLUOXETINE HCL 20 MG CAP PO SCH ×2 (08:58→08:59)
--- NOTE | 2018-02-20 09:27 | Surgery Progress Note ---
Surgery Progress Note Date of Service Feb 20, 2018. Subjective Post OP Day: 1 + diet (tolerated clear liquids), No nausea, No vomiting Objective Vital Signs: Date Time Temp Pulse Resp B/P (MAP) Pulse Ox O2 Delivery O2 Flow Rate FiO2 02/20/18 08:04 36.5 65 17 113/71 (85) 95 Room Air 02/20/18 03:04 36.3 75 15 122/73 (89) 97 Nasal Cannula 2.0 02/20/18 00:30 94 Nasal Cannula 3.0 02/19/18 23:01 36.6 86 15 115/66 (82) 96 Nasal Cannula 2.0 02/19/18 19:07 36.3 95 18 109/72 (84) 93 Room Air 02/19/18 18:00 37.1 85 18 105/63 (77) 99 Nasal Cannula 3.0 02/19/18 17:13 36.6 86 16 106/63 (77) 95 Nasal Cannula 3.0 02/19/18 16:34 36.6 96 16 104/73 (83) 91 Nasal Cannula 3.0 02/19/18 15:45 94 Nasal Cannula 3.0 02/19/18 15:45 94 Nasal Cannula 3.0 02/19/18 15:45 36.8 87 16 112/70 (84) 94 Nasal Cannula 3.0 02/19/18 15:30 83 18 118/74 94 Nasal Cannula 4 02/19/18 15:25 36.4 96 19 115/78 95 Nasal Cannula 4 02/19/18 15:15 100 23 138/86 90 Nasal Cannula 3 02/19/18 15:05 98 18 135/75 94 Nasal Cannula 4 02/19/18 14:55 94 17 137/86 92 Nasal Cannula 3 02/19/18 14:45 89 14 147/74 97 Oxymask 10 02/19/18 14:36 86 22 95 Mask 11.0 02/19/18 14:35 87 15 124/82 96 Oxymask 10 02/19/18 14:25 37.1 85 17 136/69 87 Oxymask 10 Abdomen: non distended, soft, + tenderness (incisional only) Laboratory Results: Results Past 24 Hours Test 02/20/18 08:04 Range/Units White Blood Count 6.30 4.8-10.8 K/uL Red Blood Count 4.53 4.7-6.1 M/uL Hemoglobin 13.8 14.0-18.0 g/dL Hematocrit 39.8 42-52 % Mean Corpuscular Volume 87.9 80-100 fL Mean Corpuscular Hemoglobin 30.5 25-34 pg Mean Corpuscular Hemoglobin Concent 34.7 32-36 g/dl Platelet Count 156 130-400 K/uL Mean Platelet Volume 9.3 7.4-10.4 fL Neutrophils (%) (Auto) 70.1 % Lymphocytes (%) (Auto) 15.4 % Monocytes (%) (Auto) 14.0 % Eosinophils (%) (Auto) 0.0 % Basophils (%) (Auto) 0.2 % Neutrophils # (Auto) 4.42 1.4-6.5 K/uL Lymphocytes # (Auto) 0.97 1.2-3.4 K/uL Monocytes # (Auto) 0.88 0.11-0.59 K/uL Eosinophils # (Auto) 0.00 0-0.5 K/uL Basophils # (Auto) 0.01 0-0.2 K/uL RDW Standard Deviation 41.9 36.4-46.3 fL RDW Coefficient of Variation 12.9 11.5-14.5 % Immature Granulocyte % (Auto) 0.3 % Immature Granulocyte # (Auto) 0.02 0.00-0.02 K/uL Sodium Level 135 136-145 mmol/L Potassium Level 3.8 3.5-5.1 mmol/L Chloride Level 103 98-107 mmol/L Carbon Dioxide Level 26 21-32 mmol/L Anion Gap 7.0 3-11 mmol/L Blood Urea Nitrogen 13 7-18 mg/dl Creatinine 1.01 0.60-1.40 mg/dl Est Creatinine Clear Calc Drug Dose 80.9 ml/min Estimated GFR () 99.4 Estimated GFR (Non- 85.7 BUN/Creatinine Ratio 12.8 10-20 Random Glucose 111 70-99 mg/dl Calcium Level 8.5 8.5-10.1 mg/dl Total Bilirubin 0.9 0.2-1 mg/dl Aspartate Amino Transf (AST/SGOT) 59 15-37 U/L Alanine Aminotransferase (ALT/SGPT) 89 12-78 U/L Alkaline Phosphatase 75 45-117 U/L Total Protein 7.1 6.4-8.2 gm/dl Albumin 3.5 3.4-5.0 gm/dl Globulin 3.6 2.5-4.0 gm/dl Albumin/Globulin Ratio 1.0 0.9-2 Assessment & Plan S/P laparoscopic cholecystectomy Doing well Regular diet for lunch If tolerates regular diet can D/C to home this afternoon
[2018-02-20 15:16] VITALS: BP 121/72; PULSE 62; TEMP 36.6; O2SAT 94
[2018-02-20 17:27] VITALS: BP 121/72; PULSE 62; TEMP 36.6; O2SAT 94
--- NOTE | 2018-02-20 17:35 | Discharge Summary ---
Discharge Summary Date of Service Feb 20, 2018. Discharge Summary Admission Date: Feb 19, 2018 at 02:35 Discharge Date: Feb 20, 2018 Principal Diagnosis: Acalculous cholecystitis Procedures: Cholecystectomy Hida Scan Kidney MRI: 1.7 cm nonenhancing T1 hyperintense, T2 hypointense right renal lesion which corresponds to the lesion shown on CT. This represents a proteinaceous/hemorrhagic cyst and is benign. Medication Reconciliation New Medications: Oxycodone/Acetaminophen 5MG/325MG (Percocet 5MG/325MG) Tab 1-2 TABLETS PO Q4H PRN for Pain, #20 TAB Continued Medications: Doxycycline Monohydrate (Monodox) 100 Mg Cap 100 MG PO BID for 21 Days, #42 CAP Fluoxetine Hcl (Prozac) 40 Mg Cap 40 MG PO DAILY, CAP Discharge Exam Review of Systems: Constitutional: No fever, No chills, No sweats Respiratory: No cough, No sputum, No wheezing, No shortness of breath Cardiovascular: No chest pain Abdomen: + pain (surgical site) Musculoskeletal: No joint pain Genitourinary - Male: No dysuria Psychiatric: No depression symptoms Endocrine: No fatigue Integumentary: No rash, No itch Physical Exam: General Appearance: WD/WN, no apparent distress Eyes: normal inspection, sclerae normal Neck: supple, no adenopathy, thyroid normal, no JVD, no carotid bruits, trachea midline Respiratory/Chest: chest non-tender, lungs clear, normal breath sounds Cardiovascular: regular rate, rhythm, no edema, no gallop, no JVD, no murmur , normal peripheral pulses Abdomen / GI: normal bowel sounds, soft, no organomegaly, no pulsatile mass , + tenderness (near the surgcal site. Surgical site clean dry and intact) Extremities: normal inspection, no calf tenderness Neurologic/Psychiatric: alert, normal mood/affect, oriented x 3 Skin: normal color, warm/dry, no rash Lymphatic: no adenopathy Hospital Course 52 yo previously healthy M presented with Abdominal pain x 5 days , Nausea, febrile on arrival, found to have Gall bladder thinking of unclear etiology on CT and Abdominal u/s. In the ED, patient arrived febrile in 38.1-38.6, otherwise VSS. He had no Leukocytosis, UA was negative. Lyme EBV serology negative. CT Abdomen showed gallbladder wall thickening and 17 mm renal mass incidentally. Abdominal u/s showed gall bladder thickening with possible intraluminal sludge CBD borderline dilated at 7 mm, exophytic right renal cyst, hepatic steatosis. Give Cefoxitin . Abdominal pain, Fever - S/P cholecystectomy - diet was advanced as tolerated - Did not complete HIDA 2/2 to pain - post-op dx acalculous cholecystitis - CBC, CMP, UA unremarkable. - IV Protonix Drip, IV NS - Gastroenterology consulted -"Intraop cholangiogram w/o filling defect, GI will sign off; call if new questions/concerns arise" - Pain controlled - Lyme was negative, EBV Neg Exophytic Renal cyst - per [facility] Abdominal u/s report -Indeterminate 17 mm right renal mass. A dedicated renal CT scan or MRI is recommended in f/u to differentiate a hyperdense cyst from solid renal neoplasm - Renal MRI Showed: "1.7 cm nonenhancing T1 hyperintense, T2 hypointense right renal lesion which corresponds to the lesion shown on CT. This represents a proteinaceous/hemorrhagic cyst and is benign." Depression/Anxiety - restarted Home Fluoxetine DVT PPX: SCD Code Status: Full Disp: Was admitted to Med/surg, d/c'd after tolerating diet and adequate pain control Resident Physician Supervision Note: I interviewed and examined the patient. Discussed with Dr. Barron and agree with findings and plan as documented in the note. Any exceptions or clarifications are listed here: None Documented By: Domenic Carrera feeling better wants to go home pain controlled vitals noted nad breathing unlabored no pallor or icterus cholecystitis - post lap jolanta, stable for home, outpt f/u Total Time Spent: Less than 30 minutes This includes examination of the patient, discharge planning, medication reconciliation, and communication with other providers. Discharge Instructions Please refer to the electronic Patient Visit Report (Discharge Instructions) for additional information. Resident Tracking Resident Involvement: Resident Care Provided Care Provided: Adult [facility] Medicine
== END 2018-02-20 18:00 | disposition home or self-care (01) | DRG 419 ==
LOC: C.EDB 18:18 → C.MSN 02-19 02:35 → ENRESERV 02-19 02:38
PROVIDERS: ADMIT Hospitalist; ATTEND Hospitalist
PROC: 0FT44ZZ Resection of Gallbladder, Percutaneous Endoscopic Approach (ICD-10-PCS; principal; 2018-02-19 09:00)
DX: K81.9 Cholecystitis, unspecified (principal)